=== PATIENT | female | born 1990 | race Caucasian/White ===

== ENCOUNTER 2017-04-08 05:15 | Inpatient (IN) | payer MEDICAID ==
[~2017-04-08 05:15] MED LIST: DENIES
[2017-04-08] MEDS ORDERED: AMPICILLIN 2 GM/NS (PMX) 100 ML ONE (05:37)
[2017-04-08] MEDS ORDERED: LACTATED RINGER'S 1,000 ML IV SCH (05:38)
[2017-04-08] MEDS ORDERED: LACTATED RINGER'S 1,000 ML IV PRN (05:45)
[2017-04-08] MEDS ORDERED: OXYCODONE/ASPIRIN (4.88/325) TAB PO PRN ×3 (06:00→09:30)
[2017-04-08] MEDS ORDERED: MISOPROSTOL 200 MCG TAB PR PRN ×2 (06:00→09:30)
[2017-04-08] MEDS ORDERED: LIDOCAINE 1% (MPF) 30 ML INJ INJ PRN (06:00)
[2017-04-08] MEDS ORDERED: MINERAL OIL LIGHT 10 ML VIAL TOP ONE (06:00)
[2017-04-08] MEDS ORDERED: CARBOPROST 250 MCG INJ IM PRN ×2 (06:00→09:30)
[2017-04-08] MEDS ORDERED: AMPICILLIN 2 GM/NS (PMX) 100 ML IV ONE (06:00)
[2017-04-08] MEDS ORDERED: IBUPROFEN 600 MG TAB PO PRN (06:00)
[2017-04-08] MEDS ORDERED: HYDROCODONE/APAP (5/325) TAB PO PRN (06:00)
[2017-04-08] MEDS ORDERED: OXYTOCIN 30 UNITS/LR 500 ML IV PRN ×2 (06:00→09:30)
[2017-04-08] MEDS ORDERED: OXYTOCIN 30 UNITS/LR 500 ML IV SCH ×2 (06:00)
[2017-04-08] MEDS ORDERED: BUTORPHANOL 2 MG INJ IV PRN (06:00)
[2017-04-08] MEDS ORDERED: METHYLERGONOVINE 0.2 MG INJ IM PRN ×2 (06:00→09:30)
--- NOTE | 2017-04-08 06:29 | HP ---
Date/Time of Note Date/Time of Note DATE: 04/08/17 TIME: 06:20 OB - History Hx of Present Free Text/Dictation 26 y.o primigravida in active labor acting delivery imminent no care not even aware of unable to obtain info due to extreme pain ,unable to communicate poss under influence by previous visit in ER in the past javan 3yrs back methamphetamine use in the record VE ruptured 8-9 /90%/0 old mec stained fluid admitted for expectant management, Past Family/Social History * Past Medical, Surgical, Family and Obstetric Histories reviewed from chart. OB Admission Exam Physical Exam HEENT: WNL Heart: Rhythm Normal Lungs: Clear, Equal Abdomen: WNL Extremities: Normal Reflexes: Normal Cervical Dilatation: 8cm Effacement: Other (90% op) Station: 0 Membranes: Ruptured Amniotic Fluid: Other (old thin mec) Contractions on Admission: < 5 Minutes Apart Date/Time Contractions Began: unknown Frequency of Contractions: no EFM NO info Intensity: Firm Last 72 hours Lab Results CBC & BMP 04/08/17 05:30 OB Assessment/Plan Reason for admission: active labor Other Assessment: unkown date ,will evaluate Plan: Expectant Management DOUG JONES MD Apr 08, 2017 06:29
--- NOTE | 2017-04-08 06:33 | LDN ---
Date/Time of Note Date/Time of Note DATE: 04/08/17 TIME: 06:30 Delivery Summary Weeks of Gestation unknown 1945gm Placenta Delivered: Spontaneously Meconium: Light Episiotomy: No Perineal laceration: 0 Anesthesia type: None Estimated blood loss: 100 Sponge & Needle done & correct: Yes All needle counts correct: Yes Any foreign bodies felt in the: No Problems: Delivery Information Sex Infant Sex: female Apgars 1 Minute: 8 5 Minute: 9 Suctioning Nose & mouth suctioned at [place]: Yes Delee suction performed: No Umbilical Cord Umbilical cord with: 3 Vessels Cord presentations: nuchal cord Nuchal cord present X: 1 Cord Blood was obtained: Yes Mother & Baby Disposition Disposition Mom & Baby to Maternity; Good: No Mom transferred to: Other () Baby to NICU: Yes DOUG JONES MD Apr 08, 2017 06:33
[2017-04-08 09:20] VITALS: BP 124/74; PULSE 83; RESP 18
[2017-04-08] MEDS ORDERED: WITCH HAZEL/GLYCERIN PAD PR PRN (09:30)
[2017-04-08] MEDS ORDERED: ZOLPIDEM 5 MG TAB PO PRN (09:30)
[2017-04-08] MEDS ORDERED: BENZOCAINE 20% 56 ML SPRAY TOP PRN (09:30)
[2017-04-08] MEDS ORDERED: LANOLIN 7 GM TUBE TOP PRN (09:30)
[2017-04-08] MEDS ORDERED: AMPICILLIN 1 GM/NS (PMX) 50 ML IV SCH (10:00)
[2017-04-08 11:33] VITALS: BP 134/75; PULSE 79; RESP 18
[2017-04-08] MEDS: IBUPROFEN 600 MG TAB PO SCH ×3 (11:33→23:32)
[2017-04-08 16:00] VITALS: BP 147/68; PULSE 105; RESP 18
[2017-04-08 20:00] VITALS: BP 125/75; PULSE 89; RESP 18
[2017-04-08] MEDS: SENNA/DOCUSATE NA (8.6MG/50MG) TAB PO SCH (21:00)
[2017-04-09] VITALS: BP 113/65; PULSE 85; RESP 18
[2017-04-09 04:00] VITALS: BP 132/66; PULSE 90; RESP 18
[2017-04-09] MEDS: IBUPROFEN 600 MG TAB PO SCH ×4 (05:50→23:45)
[2017-04-09 07:45] VITALS: BP 124/76; PULSE 78; RESP 18
[2017-04-09] MEDS ORDERED: INFLUENZA VIRUS VACCINE 0.5 ML (DISPENSING) IM* ONE (09:00)
[2017-04-09] MEDS: SENNA/DOCUSATE NA (8.6MG/50MG) TAB PO SCH ×2 (09:15→21:00)
--- NOTE | 2017-04-09 11:27 | PN ---
Date/Time of Note Date/Time of Note DATE: 04/09/17 TIME: 11:23 OB Objective Objective Objective April 09, 2017 Post day 1 Patient is doing well, Ambulatory She is afebrile Abdomen is soft , Fundus is firm Moderate amount of lochia Breasts are soft, Nipples are intact No calf tenderness. Perineum is intact Laboratory Tests Test 04/08/17 13:30 04/09/17 07:38 Urine Color YELLOW Urine Clarity CLEAR Urine pH 6.0 Urine Specific [place] 1.033 Urine Ketones NEGATIVEmg/dL Urine Nitrite NEGATIVEmg/dL Urine Bilirubin NEGATIVEmg/dL Urine Urobilinogen NEGATIVEmg/dL Urine Leukocyte Esterase TRACELeu/ul Urine Microscopic RBC > 182/HPF Urine Microscopic WBC 7/HPF Urine Bacteria FEW/HPF Urine Mucus FEW/HPF Urine Hemoglobin 2+mg/dL Urine Glucose NEGATIVEmg/dL Urine Total Protein 2+mg/dl Urine Opiates Screen Negative Urine Barbiturates Negative Urine Amphetamines Screen POSITIVE Urine Benzodiazepines Screen Negative Urine Cocaine Screen Negative Urine Cannabinoids Negative White Blood Count 12.910^3/ul Red Blood Count 4.2410^6/ul Hemoglobin 11.0g/dl Hematocrit 34.3% Mean Corpuscular Volume 80.9fl Mean Corpuscular Hemoglobin 25.9pg Mean Corpuscular Hemoglobin Concent 32.1g/dl Red Cell Distribution Width 15.4% Platelet Count 14119^3/UL Mean Platelet Volume 11.2fl Neutrophils % 63.9% Lymphocytes % 25.1% Monocytes % 7.2% Eosinophils % 1.9% Basophils % 0.5% Nucleated Red Blood Cells % 0.0/100WBC Neutrophils # 8.210^3/ul Lymphocytes # 3.210^3/ul Monocytes # 0.910^3/ul Eosinophils # 0.210^3/ul Basophils # 0.110^3/ul Nucleated Red Blood Cells # 0.010^3/ul Current Medications Medications (Trade) Dose Ordered Sig/Nguyễn Route PRN Reason Start Time Stop Time Status Last Admin Dose Admin Ampicillin 100 ml @ ud STK-MED ONCE .ROUTE 04/08/17 05:37 04/08/17 05:38 DC Lactated Ringer's 1,000 ml @ 125 mls/hr Q8H IV 04/08/17 05:38 04/08/17 09:19 DC 04/08/17 06:04 Ampicillin 100 ml @ 100 mls/hr ONCE ONCE IV 04/08/17 06:00 04/08/17 06:59 DC 04/08/17 05:57 Ampicillin (Ampicillin 1 Gm/ NS (Pmx)) 50 ml @ 100 mls/hr Q4H IV 04/08/17 10:00 04/08/17 10:00 DC Butorphanol Tartrate (Stadol) 2 mg Q2H PRN IV PAIN 04/08/17 06:00 04/08/17 09:19 DC Lidocaine 30 ml 30 ml ONCE PRN INJ EPISIOTOMY/TEARING 04/08/17 06:00 04/08/17 09:19 DC Oxytocin/Lactated Ringer's 500 ml @ 125 mls/hr ONCE -MAY REPEAT X1 IV 04/08/17 06:00 04/08/17 09:19 DC 04/08/17 05:59 Oxytocin/Lactated Ringer's 500 ml @ 125 mls/hr ONCE IV 04/08/17 06:00 04/08/17 09:19 DC 04/08/17 06:34 Ibuprofen (Motrin) 600 mg ONCE PRN PO Mild Pain (Pain Score 1-3) 04/08/17 06:00 04/08/17 09:19 DC 04/08/17 06:28 Acetaminophen/ Hydrocodone Bitart ([place] (5/325)) 2 tab ONCE PRN PO Moderate to Severe Pain (4-10) 04/08/17 06:00 04/08/17 09:19 DC Oxycodone/Aspirin 2 tab 2 tab ONCE PRN PO Moderate to Severe Pain (4-10) 04/08/17 06:00 04/08/17 09:19 DC Lactated Ringer's 1,000 ml @ 2,000 mls/hr Q30M PRN IV PRE-EPIDURAL BOLUS 04/08/17 05:45 04/08/17 09:19 DC Oxytocin/Lactated Ringer's 500 ml @ 0 mls/hr ONCE PRN IV For Hemorrhage Management 04/08/17 06:00 04/08/17 09:19 DC Methylergonovine Maleate (Methergine) 0.2 mg ONCE PRN IM VAGINAL BLEEDING 04/08/17 06:00 04/08/17 09:19 DC Carboprost Tromethamine (Hemabate) 250 mcg ONCE PRN IM VAGINAL BLEEDING 04/08/17 06:00 04/08/17 09:19 DC Misoprostol (Cytotec) 1,000 mcg ONCE PRN [place] VAGINAL BLEEDING 04/08/17 06:00 04/08/17 09:19 DC Mineral Oil (Muri-Lube) ONCE ONCE TOP 04/08/17 06:00 04/08/17 06:01 DC Ibuprofen (Motrin) 600 mg Q6 PO 04/08/17 12:00 04/08/17 23:32 Oxycodone/Aspirin (Percodan) 1 tab Q3H PRN PO PAIN LEVEL 1-5 04/08/17 09:30 Oxycodone/Aspirin (Percodan) 2 tab Q3H PRN PO PAIN LEVEL 6-10 04/08/17 09:30 Zolpidem Tartrate (Ambien) 5 mg QHS PRN PO INSOMNIA 04/08/17 09:30 Senna/Docusate Sodium (Senokot-S) 1 tab BID PO 04/08/17 21:00 04/09/17 09:15 Witch Kristen/ Glycerin (Tucks Pads) 1 pad BEDSIDE MEDICATION PRN [place] HEMORRHOID/EPISIOTMY PAIN 04/08/17 09:30 04/08/17 11:31 Benzocaine (Dermoplast [place]) 1 spray BEDSIDE MEDICATION PRN TOP HEMORRHOID/EPISIOTMY PAIN 04/08/17 09:30 04/08/17 11:30 Lanolin (Mbi-X-Ghdglx) 1 applic BEDSIDE MEDICATION PRN TOP BEDSIDE FOR WU TO NIPPLES 04/08/17 09:30 Diphtheria/ Tetanus/Acell Pertussis 0.5 ml 0.5 ml ONCE ONCE IM* 04/10/17 09:00 04/10/17 09:01 Oxytocin/Lactated Ringer's 500 ml @ 0 mls/hr ONCE PRN IV For Hemorrhage Management 04/08/17 09:30 Methylergonovine Maleate (Methergine) 0.2 mg ONCE PRN IM VAGINAL BLEEDING 04/08/17 09:30 Carboprost Tromethamine (Hemabate) 250 mcg ONCE PRN IM VAGINAL BLEEDING 04/08/17 09:30 Misoprostol (Cytotec) 1,000 mcg ONCE PRN [place] VAGINAL BLEEDING 11/1/17 09:30 Influenza Virus Vaccine (Fluzone) 0.5 ml ONCE ONCE IM* 04/09/17 09:00 04/09/17 09:01 DC New born is in NICU. MARSHALL HAGEN MD Apr 09, 2017 11:27
--- NOTE | 2017-04-09 11:27 | PN ---
Date/Time of Note Date/Time of Note DATE: 04/09/17 TIME: 11:23 OB Objective Objective Objective April 09, 2017 Post day 1 Patient is doing well, Ambulatory She is afebrile Abdomen is soft , Fundus is firm Moderate amount of lochia Breasts are soft, Nipples are intact No calf tenderness. Perineum is intact Laboratory Tests Test 04/08/17 13:30 04/09/17 07:38 Urine Color YELLOW Urine Clarity CLEAR Urine pH 6.0 Urine Specific [place] 1.033 Urine Ketones NEGATIVEmg/dL Urine Nitrite NEGATIVEmg/dL Urine Bilirubin NEGATIVEmg/dL Urine Urobilinogen NEGATIVEmg/dL Urine Leukocyte Esterase TRACELeu/ul Urine Microscopic RBC > 182/HPF Urine Microscopic WBC 7/HPF Urine Bacteria FEW/HPF Urine Mucus FEW/HPF Urine Hemoglobin 2+mg/dL Urine Glucose NEGATIVEmg/dL Urine Total Protein 2+mg/dl Urine Opiates Screen Negative Urine Barbiturates Negative Urine Amphetamines Screen POSITIVE Urine Benzodiazepines Screen Negative Urine Cocaine Screen Negative Urine Cannabinoids Negative White Blood Count 12.910^3/ul Red Blood Count 4.2410^6/ul Hemoglobin 11.0g/dl Hematocrit 34.3% Mean Corpuscular Volume 80.9fl Mean Corpuscular Hemoglobin 25.9pg Mean Corpuscular Hemoglobin Concent 32.1g/dl Red Cell Distribution Width 15.4% Platelet Count 65705^3/UL Mean Platelet Volume 11.2fl Neutrophils % 63.9% Lymphocytes % 25.1% Monocytes % 7.2% Eosinophils % 1.9% Basophils % 0.5% Nucleated Red Blood Cells % 0.0/100WBC Neutrophils # 8.210^3/ul Lymphocytes # 3.210^3/ul Monocytes # 0.910^3/ul Eosinophils # 0.210^3/ul Basophils # 0.110^3/ul Nucleated Red Blood Cells # 0.010^3/ul Current Medications Medications (Trade) Dose Ordered Sig/Nguyễn Route PRN Reason Start Time Stop Time Status Last Admin Dose Admin Ampicillin 100 ml @ ud STK-MED ONCE .ROUTE 04/08/17 05:37 04/08/17 05:38 DC Lactated Ringer's 1,000 ml @ 125 mls/hr Q8H IV 04/08/17 05:38 04/08/17 09:19 DC 04/08/17 06:04 Ampicillin 100 ml @ 100 mls/hr ONCE ONCE IV 04/08/17 06:00 04/08/17 06:59 DC 04/08/17 05:57 Ampicillin (Ampicillin 1 Gm/ NS (Pmx)) 50 ml @ 100 mls/hr Q4H IV 04/08/17 10:00 04/08/17 10:00 DC Butorphanol Tartrate (Stadol) 2 mg Q2H PRN IV PAIN 04/08/17 06:00 04/08/17 09:19 DC Lidocaine 30 ml 30 ml ONCE PRN INJ EPISIOTOMY/TEARING 04/08/17 06:00 04/08/17 09:19 DC Oxytocin/Lactated Ringer's 500 ml @ 125 mls/hr ONCE -MAY REPEAT X1 IV 04/08/17 06:00 04/08/17 09:19 DC 04/08/17 05:59 Oxytocin/Lactated Ringer's 500 ml @ 125 mls/hr ONCE IV 04/08/17 06:00 04/08/17 09:19 DC 04/08/17 06:34 Ibuprofen (Motrin) 600 mg ONCE PRN PO Mild Pain (Pain Score 1-3) 04/08/17 06:00 04/08/17 09:19 DC 04/08/17 06:28 Acetaminophen/ Hydrocodone Bitart ([place] (5/325)) 2 tab ONCE PRN PO Moderate to Severe Pain (4-10) 04/08/17 06:00 04/08/17 09:19 DC Oxycodone/Aspirin 2 tab 2 tab ONCE PRN PO Moderate to Severe Pain (4-10) 04/08/17 06:00 04/08/17 09:19 DC Lactated Ringer's 1,000 ml @ 2,000 mls/hr Q30M PRN IV PRE-EPIDURAL BOLUS 04/08/17 05:45 04/08/17 09:19 DC Oxytocin/Lactated Ringer's 500 ml @ 0 mls/hr ONCE PRN IV For Hemorrhage Management 04/08/17 06:00 04/08/17 09:19 DC Methylergonovine Maleate (Methergine) 0.2 mg ONCE PRN IM VAGINAL BLEEDING 04/08/17 06:00 04/08/17 09:19 DC Carboprost Tromethamine (Hemabate) 250 mcg ONCE PRN IM VAGINAL BLEEDING 04/08/17 06:00 04/08/17 09:19 DC Misoprostol (Cytotec) 1,000 mcg ONCE PRN [place] VAGINAL BLEEDING 04/08/17 06:00 04/08/17 09:19 DC Mineral Oil (Muri-Lube) ONCE ONCE TOP 04/08/17 06:00 04/08/17 06:01 DC Ibuprofen (Motrin) 600 mg Q6 PO 04/08/17 12:00 04/08/17 23:32 Oxycodone/Aspirin (Percodan) 1 tab Q3H PRN PO PAIN LEVEL 1-5 04/08/17 09:30 Oxycodone/Aspirin (Percodan) 2 tab Q3H PRN PO PAIN LEVEL 6-10 04/08/17 09:30 Zolpidem Tartrate (Ambien) 5 mg QHS PRN PO INSOMNIA 04/08/17 09:30 Senna/Docusate Sodium (Senokot-S) 1 tab BID PO 04/08/17 21:00 04/09/17 09:15 Witch Kristen/ Glycerin (Tucks Pads) 1 pad BEDSIDE MEDICATION PRN [place] HEMORRHOID/EPISIOTMY PAIN 04/08/17 09:30 04/08/17 11:31 Benzocaine (Dermoplast [place]) 1 spray BEDSIDE MEDICATION PRN TOP HEMORRHOID/EPISIOTMY PAIN 04/08/17 09:30 04/08/17 11:30 Lanolin (Uzw-L-Pufppw) 1 applic BEDSIDE MEDICATION PRN TOP BEDSIDE FOR WU TO NIPPLES 04/08/17 09:30 Diphtheria/ Tetanus/Acell Pertussis 0.5 ml 0.5 ml ONCE ONCE IM* 04/10/17 09:00 04/10/17 09:01 Oxytocin/Lactated Ringer's 500 ml @ 0 mls/hr ONCE PRN IV For Hemorrhage Management 04/08/17 09:30 Methylergonovine Maleate (Methergine) 0.2 mg ONCE PRN IM VAGINAL BLEEDING 04/08/17 09:30 Carboprost Tromethamine (Hemabate) 250 mcg ONCE PRN IM VAGINAL BLEEDING 04/08/17 09:30 Misoprostol (Cytotec) 1,000 mcg ONCE PRN [place] VAGINAL BLEEDING 11/1/17 09:30 Influenza Virus Vaccine (Fluzone) 0.5 ml ONCE ONCE IM* 04/09/17 09:00 04/09/17 09:01 DC New born is in NICU. MARSHALL HAGEN MD Apr 09, 2017 11:27
--- NOTE | 2017-04-09 11:27 | PN ---
Date/Time of Note Date/Time of Note DATE: 04/09/17 TIME: 11:23 OB Objective Objective Objective April 09, 2017 Post day 1 Patient is doing well, Ambulatory She is afebrile Abdomen is soft , Fundus is firm Moderate amount of lochia Breasts are soft, Nipples are intact No calf tenderness. Perineum is intact Laboratory Tests Test 04/08/17 13:30 04/09/17 07:38 Urine Color YELLOW Urine Clarity CLEAR Urine pH 6.0 Urine Specific [place] 1.033 Urine Ketones NEGATIVEmg/dL Urine Nitrite NEGATIVEmg/dL Urine Bilirubin NEGATIVEmg/dL Urine Urobilinogen NEGATIVEmg/dL Urine Leukocyte Esterase TRACELeu/ul Urine Microscopic RBC > 182/HPF Urine Microscopic WBC 7/HPF Urine Bacteria FEW/HPF Urine Mucus FEW/HPF Urine Hemoglobin 2+mg/dL Urine Glucose NEGATIVEmg/dL Urine Total Protein 2+mg/dl Urine Opiates Screen Negative Urine Barbiturates Negative Urine Amphetamines Screen POSITIVE Urine Benzodiazepines Screen Negative Urine Cocaine Screen Negative Urine Cannabinoids Negative White Blood Count 12.910^3/ul Red Blood Count 4.2410^6/ul Hemoglobin 11.0g/dl Hematocrit 34.3% Mean Corpuscular Volume 80.9fl Mean Corpuscular Hemoglobin 25.9pg Mean Corpuscular Hemoglobin Concent 32.1g/dl Red Cell Distribution Width 15.4% Platelet Count 67050^3/UL Mean Platelet Volume 11.2fl Neutrophils % 63.9% Lymphocytes % 25.1% Monocytes % 7.2% Eosinophils % 1.9% Basophils % 0.5% Nucleated Red Blood Cells % 0.0/100WBC Neutrophils # 8.210^3/ul Lymphocytes # 3.210^3/ul Monocytes # 0.910^3/ul Eosinophils # 0.210^3/ul Basophils # 0.110^3/ul Nucleated Red Blood Cells # 0.010^3/ul Current Medications Medications (Trade) Dose Ordered Sig/Nguyễn Route PRN Reason Start Time Stop Time Status Last Admin Dose Admin Ampicillin 100 ml @ ud STK-MED ONCE .ROUTE 04/08/17 05:37 04/08/17 05:38 DC Lactated Ringer's 1,000 ml @ 125 mls/hr Q8H IV 04/08/17 05:38 04/08/17 09:19 DC 04/08/17 06:04 Ampicillin 100 ml @ 100 mls/hr ONCE ONCE IV 04/08/17 06:00 04/08/17 06:59 DC 04/08/17 05:57 Ampicillin (Ampicillin 1 Gm/ NS (Pmx)) 50 ml @ 100 mls/hr Q4H IV 04/08/17 10:00 04/08/17 10:00 DC Butorphanol Tartrate (Stadol) 2 mg Q2H PRN IV PAIN 04/08/17 06:00 04/08/17 09:19 DC Lidocaine 30 ml 30 ml ONCE PRN INJ EPISIOTOMY/TEARING 04/08/17 06:00 04/08/17 09:19 DC Oxytocin/Lactated Ringer's 500 ml @ 125 mls/hr ONCE -MAY REPEAT X1 IV 04/08/17 06:00 04/08/17 09:19 DC 04/08/17 05:59 Oxytocin/Lactated Ringer's 500 ml @ 125 mls/hr ONCE IV 04/08/17 06:00 04/08/17 09:19 DC 04/08/17 06:34 Ibuprofen (Motrin) 600 mg ONCE PRN PO Mild Pain (Pain Score 1-3) 04/08/17 06:00 04/08/17 09:19 DC 04/08/17 06:28 Acetaminophen/ Hydrocodone Bitart ([place] (5/325)) 2 tab ONCE PRN PO Moderate to Severe Pain (4-10) 04/08/17 06:00 04/08/17 09:19 DC Oxycodone/Aspirin 2 tab 2 tab ONCE PRN PO Moderate to Severe Pain (4-10) 04/08/17 06:00 04/08/17 09:19 DC Lactated Ringer's 1,000 ml @ 2,000 mls/hr Q30M PRN IV PRE-EPIDURAL BOLUS 04/08/17 05:45 04/08/17 09:19 DC Oxytocin/Lactated Ringer's 500 ml @ 0 mls/hr ONCE PRN IV For Hemorrhage Management 04/08/17 06:00 04/08/17 09:19 DC Methylergonovine Maleate (Methergine) 0.2 mg ONCE PRN IM VAGINAL BLEEDING 04/08/17 06:00 04/08/17 09:19 DC Carboprost Tromethamine (Hemabate) 250 mcg ONCE PRN IM VAGINAL BLEEDING 04/08/17 06:00 04/08/17 09:19 DC Misoprostol (Cytotec) 1,000 mcg ONCE PRN [place] VAGINAL BLEEDING 04/08/17 06:00 04/08/17 09:19 DC Mineral Oil (Muri-Lube) ONCE ONCE TOP 04/08/17 06:00 04/08/17 06:01 DC Ibuprofen (Motrin) 600 mg Q6 PO 04/08/17 12:00 04/08/17 23:32 Oxycodone/Aspirin (Percodan) 1 tab Q3H PRN PO PAIN LEVEL 1-5 04/08/17 09:30 Oxycodone/Aspirin (Percodan) 2 tab Q3H PRN PO PAIN LEVEL 6-10 04/08/17 09:30 Zolpidem Tartrate (Ambien) 5 mg QHS PRN PO INSOMNIA 04/08/17 09:30 Senna/Docusate Sodium (Senokot-S) 1 tab BID PO 04/08/17 21:00 04/09/17 09:15 Witch Kristen/ Glycerin (Tucks Pads) 1 pad BEDSIDE MEDICATION PRN [place] HEMORRHOID/EPISIOTMY PAIN 04/08/17 09:30 04/08/17 11:31 Benzocaine (Dermoplast [place]) 1 spray BEDSIDE MEDICATION PRN TOP HEMORRHOID/EPISIOTMY PAIN 04/08/17 09:30 04/08/17 11:30 Lanolin (Lil-N-Ovwugd) 1 applic BEDSIDE MEDICATION PRN TOP BEDSIDE FOR WU TO NIPPLES 04/08/17 09:30 Diphtheria/ Tetanus/Acell Pertussis 0.5 ml 0.5 ml ONCE ONCE IM* 04/10/17 09:00 04/10/17 09:01 Oxytocin/Lactated Ringer's 500 ml @ 0 mls/hr ONCE PRN IV For Hemorrhage Management 04/08/17 09:30 Methylergonovine Maleate (Methergine) 0.2 mg ONCE PRN IM VAGINAL BLEEDING 04/08/17 09:30 Carboprost Tromethamine (Hemabate) 250 mcg ONCE PRN IM VAGINAL BLEEDING 04/08/17 09:30 Misoprostol (Cytotec) 1,000 mcg ONCE PRN [place] VAGINAL BLEEDING 11/1/17 09:30 Influenza Virus Vaccine (Fluzone) 0.5 ml ONCE ONCE IM* 04/09/17 09:00 04/09/17 09:01 DC New born is in NICU. MARSHALL HAGEN MD Apr 09, 2017 11:27
[2017-04-09 11:59] VITALS: BP 123/84; PULSE 79; RESP 18
[2017-04-09 15:22] VITALS: BP 117/72; PULSE 74; RESP 20
[2017-04-09 20:27] VITALS: BP 128/81; PULSE 83; RESP 18
[2017-04-10 04:00] VITALS: BP 98/51; PULSE 68; RESP 18
[2017-04-10] MEDS: IBUPROFEN 600 MG TAB PO SCH ×2 (05:28→12:19)
[2017-04-10 08:02] VITALS: BP 121/78; PULSE 78; RESP 18
[2017-04-10] MEDS ORDERED: DIPHTH/TET/ACEL PERTUSS (ADULT) 0.5 ML VIAL IM* ONE (09:00)
[2017-04-10] MEDS: SENNA/DOCUSATE NA (8.6MG/50MG) TAB PO SCH (09:03)
--- NOTE | 2017-04-10 11:28 | QN ---
Documentation Comment PPD#2 is stable afebrile tolerates diet ambulates No VB +BM ,voids, VS stable Gen NAD Abd soft NT ND Genitalia No blood at perinium --->discharge plan MYLES BOTELLO M.D. Apr 10, 2017 11:28
--- NOTE | 2017-04-10 11:29 | DS ---
Date/Time of Note Date/Time of Note DATE: 04/10/17 TIME: 11:29 Discharge Summary Admission/Discharge Info Admit Date/Time Apr 08, 2017 at 05:17 Discharge Date/Time Discharge Diagnosis Patient Condition: Good Hospital Course uneventful Home Meds Reported Medications [Denies] No Conflict Check 12/17/10 Primary Care Provider Care Physician No Primary MYLES BOTELLO M.D. Apr 10, 2017 11:29
== END 2017-04-10 14:39 | disposition home or self-care (01) | DRG 775 ==
LOC: OBT 05:15 → L-D 05:17 → PP1 09:20
PROVIDERS: ADMIT Obstetrics & Gynecology; ATTEND Obstetrics & Gynecology
PROC: 10E0XZZ Delivery of Products of Conception, External Approach (ICD-10-PCS; principal; 2017-04-08)
PROC: 3E0P3VZ Introduction of Hormone into Female Reproductive, Percutaneous Approach (ICD-10-PCS; 2017-04-08)
DX: O69.81X0 Labor and delivery complicated by cord around neck, without compression, not applicable or unspecified (principal); Z37.0 Single live birth; Z3A.39 39 weeks gestation of pregnancy
CPT/HCPCS: 80053; 80307; 81001; 84560; 85025; 85610; 85730; 86592; 86762; 86900; 86901; 87340; 88307; 90686; 90715; 99464; G0463; J0290; J7120